=== PATIENT | male | born 1975 | race Caucasian/White ===

== ENCOUNTER 2024-07-18 14:38 | Emergency (ER) | payer BC ==
[~2024-07-18] VITALS: Ht 167.6 cm; Wt 80.2 kg
[2024-07-18 14:56] VITALS: TEMP 97.9
[2024-07-18 15:06] LABS: BASOPHILS % (AUTO) 0.3 % (0-1); EOSINOPHILS # (AUTO) 0.3 X10'3 (0-0.9); EOSINOPHILS % (AUTO) 2.3 % (0-6); HEMATOCRIT 49.4 % (42.0-52.0); HEMOGLOBIN 16.4 g/dl (14.0-17.9); LYMPHOCYTES # (AUTO) 4.2 X10'3 (1.1-4.8); LYMPHOCYTES % (AUTO) 34.5 % (21-51); MEAN CORPUSCULAR HEMOGLOBIN 30.3 PG (27.0-31.0); MEAN CORPUSCULAR HGB CONC 33.3 g/dL (33.0-36.5); MEAN PLATELET VOLUME 8.4 FL (7.4-10.4); MONOCYTES # (AUTO) 0.8 X10'3 (0-0.9); MONOCYTES % (AUTO) 6.9 % (2-12); NEUTROPHILS # (AUTO) 6.8 X10'3 (1.8-7.7); PLATELET COUNT 246 X10'3 (140-440); RED BLOOD COUNT 5.43 X10'6 (4.70-6.10); RED CELL DISTRIBUTION WIDTH 12.7 % (11.5-14.5); WHITE BLOOD COUNT 12.2 X10'3 (4.5-11.0)
[2024-07-18 15:08] LABS: ANION GAP 11 (8-16); BLOOD UREA NITROGEN 18 MG/DL (7-18); BUN/CREATININE RATIO 24.7 (10.0-20.0); CALCIUM 9.4 MG/DL (8.5-10.1); CHLORIDE 103 MMOL/L (99-107); CREATININE 0.73 MG/DL (0.60-1.10); GLUCOSE 124 MG/DL (70-104); POTASSIUM 3.4 MMOL/L (3.5-5.1); SODIUM 141 MMOL/L (135-145); TOTAL CARBON DIOXIDE 26.7 MMOL/L (24-32); eCRCL 108 ML/MIN; eGFR > 90 ML/MIN
[2024-07-18 15:09] LABS: ALBUMIN 4.2 G/DL (3.4-5.0); MAGNESIUM 2.4 MG/DL (1.5-2.4)
--- NOTE | 2024-07-18 15:27 | Physician Documentation ---
History of Present Illness ~ Chief Complaint: Syncope Stated Complaint: SYNCOPE Time Seen by MD: 14:46 Mode of Arrival: Wheelchair HPI 49-year-old male presenting with a syncopal episode while sitting in the ER. Patient is here in the ER because of his mother who is also in the ER. While sitting in the chair he suddenly became lightheaded and passed out. He states that he did not feel any palpitations or chest pain beforehand. Patient is diabetic but states that his blood sugars have been pretty well controlled recently. He denies any other associated symptoms. Medication Reconciliation Allergies: Coded Allergies: acetaminophen (Verified Allergy, Severe, 07/18/24) hydrocodone (Verified Allergy, Severe, 07/18/24) Uncoded Allergies: VICODEINE (Allergy, Severe, 07/18/24) Physical Exam Vital Signs: Temperature: 97.9, Source: Oral, Heart Rate: 72, Respiratory Rate: 15, BP: 114/77, Pulse Oximetry: 100, Weight: 80.200 Physical Exam I have reviewed the triage vitals. CONST: Well developed and well nourished. In no acute distress HENT: Head Atraumatic EYES: Pupils are equal, round and reactive to light. Normal conjunctiva NECK: Normal range of motion. Supple. CARDIO: Normal rate and regular rhythm. No murmurs, rubs, or gallops. S1, S2. PULM/CHEST: No respiratory distress. Lungs clear to auscultation. No wheeze ABD: Soft and nontender. Nondistended. Bowel sounds normal. No guarding. : Exam deferred MSK: No edema. No deformity. NEURO: Alert and oriented to person, place and time. Moving all extremities SKIN: Warm and dry. PSYCH: Normal mood and affect. Good eye contact. Progress Results/Orders Results/Orders Orders - GONZALEZ TABARES MD Electrocardiogram (07/18/24 14:46) Completed Orders - GONZALEZ TABARES MD Cbc/Diff (07/18/24 14:46) MG (07/18/24 14:46) BMP (07/18/24 14:46) Hs Troponin I W Calculations (07/18/24 14:46) Hs Troponin I W Calculations (07/18/24 16:46) Normal Saline 1000ml (Sodium Chloride 10 (07/18/24 15:30) Potassium Cl Sr Tablet (K-Dur Tablet) (07/18/24 17:03) Hgb A1c (07/18/24 14:45) Medications Received in ER Medications (Trade) Dose Ordered Sig/Rudolph Route PRN Reason Start Time Stop Time Status Last Admin Dose Admin Sodium Chloride 1,000 ml @ 1,000 mls/hr ONCE ONCE IV 07/18/24 15:30 07/18/24 16:29 DC 07/18/24 15:32 1,000 MLS/HR (K-DUR tablet) 20 meq ONCE STAT PO 07/18/24 17:03 07/18/24 17:06 DC 07/18/24 17:11 20 MEQ Vital Signs 07/18/24 07/18/24 07/18/24 07/18/24 14:56 15:03 15:06 17:14 Temp 97.9 Pulse 94 72 92 Resp 14 16 15 15 B/P (MAP) 137/69 114/77 (89) 132/72 (92) Pulse Ox 98 100 99 Laboratory Tests Test 07/18/24 14:45 07/18/24 14:46 07/18/24 16:53 White Blood Count 12.2 H Red Blood Count 5.43 Hemoglobin 16.4 Hematocrit 49.4 Mean Corpuscular Volume 91.0 Mean Corpuscular Hemoglobin 30.3 Mean Corpuscular Hemoglobin Concent 33.3 Red Cell Distribution Width 12.7 Platelet Count 246 Mean Platelet Volume 8.4 Neutrophils (%) (Auto) 56.0 Lymphocytes (%) (Auto) 34.5 Monocytes (%) (Auto) 6.9 Eosinophils (%) (Auto) 2.3 Basophils (%) (Auto) 0.3 Neutrophils # (Auto) 6.8 Lymphocytes # (Auto) 4.2 Monocytes # (Auto) 0.8 Eosinophils # (Auto) 0.3 Basophils # (Auto) 0.0 CBC Comment Sodium Level 141 Potassium Level 3.4 L Chloride Level 103 Carbon Dioxide Level 26.7 Anion Gap 11 Blood Urea Nitrogen 18 Creatinine 0.73 Estimated GFR/1.73 m2 > 90 BUN/Creatinine Ratio 24.7 H Glucose Level 124 H Hemoglobin A1c 6.1 Calcium Level 9.4 Magnesium Level 2.4 Troponin I High Sensitivity 4 5 Albumin 4.2 Chemistry Comments Glucometer 135 H Troponin I High Sens Percent Delta 25 Troponin I Hi Sens Absolute Change 1 EKG/XRAY/CT/US/VASC/MRI EKG : Additional Comment EKG as interpreted by me indicates a rate of 90 beats per minute, no signs of ischemia, normal axis Medical Decision Making Additional Information 49-year-old male presenting with a syncopal episode that suddenly occurred while he was in the ED tending to his mom who is also a patient. Patient was given a L of IV normal saline. Lab workup was unremarkable. EKG was unremarkable. It appears the patient was likely slightly dehydrated. He did have a borderline low potassium of 3.4. This was replaced with 20 mEq of p.o. potassium. Patient was advised to ensure that he is eating and drinking adequately. Monitor symptoms for improvement and resolution. Follow up with PCP in the next 2-3 days and return to the ED with any acutely worsening symptoms. Departure Disposition: HOME / SELF CARE / HOMELESS Impression: Primary Impression: Syncope Additional Impressions: Dehydration Hypokalemia Condition: Improved Discharge Instructions: Syncope, Adult, Dehydration, Adult Additional Instructions: Drink plenty of fluids and get plenty of rest. Monitor symptoms for improvement and resolution. Return to the ED with any acutely worsening symptoms. Follow up with PCP in the next 2-5 days. Referrals: NO PRIMARY CARE PROVIDER (PCP) Education Additional Comment Drink plenty of fluids and get plenty of rest. Monitor symptoms for improvement and resolution. Return to the ED with any acutely worsening symptoms. Follow up with PCP in the next 2-5 days. Signature Scribe Signature: 1 Attestation: 1 GONZALEZ TABARES MD Jul 18, 2024 15:27
[2024-07-18] MEDS: normal saline 1000ml 1,000 ML IV ONE (15:32)
[2024-07-18] MEDS: potassium Cl 20 mEq SR tablet PO STA (17:11)
[2024-07-18 17:14] VITALS: BP 132/72; PULSE 92; RESP 15; O2SAT 99
[2024-07-18 17:39] LABS: HEMOGLOBIN A1C 6.1 % (4.5-6.2)
--- NOTE | 2024-07-19 06:34 | ELECTROCARDIOGRAPH REPORT ---
[facility] Test Date: 2024-07-18 Test Time: 14:43:09 Pat Name: PARUL FUENTES Department: EMERGENCY ROOM Room: Gender: M Counselor [place]: : 1975 Requested By: GONZALEZ TABARES Order Number: [id number] Reading MD: Dr. Darrin Webb Measurements Intervals [place] Rate: 90 P: 50 WI: 148 QRS: 37 QRSD: 92 T: 39 QT: 365 QTc: 447 Interpretive Statements Sinus rhythm Probable left atrial enlargement ST elev, probable normal early repol pattern Electronically Signed On 07-19-2024 19:02:[address] Darrin Webb Please click the below link to view image of tracing.
== END 2024-07-18 17:28 | disposition home or self-care (01) ==
LOC: ER 14:39
DX: R55 Syncope and collapse (principal); E86.0 Dehydration; E87.6 Hypokalemia; E11.9 Type 2 diabetes mellitus without complications; Z88.5 Allergy status to narcotic agent; Z88.6 Allergy status to analgesic agent
CPT/HCPCS: 36415; 80048; 82948; 83036; 83735; 84484; 85025; 93005; 96360; 99284; J7030